=== PATIENT | female | born 1930 | race Caucasian/White ===

== ENCOUNTER → 2016-12-18 | Outpatient (CLI) | payer MEDICARE, OTHER ==
[~2016-12-18] MED LIST: AMLODIPINE BES2.5 MG PO; AMLODIPINE5 M1 PO; BRIMONIDINE 0.2%5 ML OP; INDERAL 40MG. T40 MG PO; LISINOPRIL20 MG PO; LORTAB 5/3251 TAB PO; PRAVACHOL40 MG PO; PREDNISONE20 MG PO; [UNRECOGNIZED DRUG - OTHER] OP
[2016-12-18 19:14] LABS: LYMPH # 1.7 K/mm3 (0.7-4.5); LYMPH % 24.2 % (10-50.0)
[2016-12-18 19:15] LABS: HEMOGLOBIN 14.3 g/dL (12.2-16.2)
[2016-12-18 20:55] LABS: BUN 24 mg/dL (7-18)
[2016-12-18 20:56] LABS: GFR (ESTIMATED) 36 ML/MIN (59-)
== END ==
LOC: LAB 18:16
PROVIDERS: Internal Medicine
DX: D69.3 Immune thrombocytopenic purpura (principal)

== ENCOUNTER → 2017-04-23 | Outpatient (CLI) | payer MEDICARE, OTHER ==
[2017-04-23 18:13] LABS: HEMOGLOBIN 13.1 g/dL (12.2-16.2); LYMPH # 1.8 K/mm3 (0.7-4.5)
[2017-04-23 19:44] LABS: BUN 28 mg/dL (7-18)
[2017-04-23 21:08] LABS: GFR (ESTIMATED) 39 ML/MIN (59-)
== END ==
LOC: LAB 17:51
PROVIDERS: Obstetrics & Gynecology Gynecology
DX: D69.3 Immune thrombocytopenic purpura (principal)